=== PATIENT | male | born 1990 ===

== ENCOUNTER 2018-06-17 14:36 | Emergency (ER) | payer MEDICAID, OTHER ==
[2018-06-17] MEDS ORDERED: Sodium Chloride 0.9% 1,000 ML IV STA (16:03)
--- NOTE | 2018-06-17 16:30 | ED PDOC ---
HPI: Abdomen Time Seen by Provider: 06/17/18 15:36 Chief Complaint (Nursing): GI Problem Chief Complaint (Provider): Vomiting History Per: Patient History/Exam Limitations: no limitations Onset/Duration Of Symptoms: Hrs Outside of [place] travel?: No Current Symptoms Are (Timing): Still Present Location Of Pain/Discomfort: Epigastric Associated Symptoms: Vomiting, Diarrhea. denies: Back Pain, Chest Pain, Constipation, Urinary Symptoms Additional History Per: Patient Additional Complaint(s): 28yo male, otherwise well, comes to ER reporting epigastric abdominal pain, 10x episodes of vomiting today as well as 3 episodes of watery diarrhea. He reports attempting to take zofran but has been unable to tolerate PO intake. He also reports generalized weakness, but otherwise denies any fever, chills, chest pain, or shortness of breath. No other complaints. Past Medical History Reviewed: Historical Data, Nursing Documentation, Vital Signs Vital Signs: Last Vital Signs Temp 97.8 F 06/17/18 14:47 Pulse 68 06/17/18 14:47 Resp 18 06/17/18 14:47 BP 112/76 06/17/18 14:47 Pulse Ox 99 06/17/18 14:47 - Medical History PMH: Gastritis - Surgical History Surgical History: No Surg Hx - Family History Family History: States: Unknown Family Hx - Home Medications Home Medications: Ambulatory Orders Medication Instructions Recorded Famotidine [Pepcid] 20 mg PO BID #10 tab 07/23/15 Ondansetron [Zofran] 4 mg PO Q8H PRN #15 tab 07/23/15 Ondansetron ODT [Zofran ODT] 4 mg PO Q8 PRN #12 odt 09/07/15 RX: Clindamycin [Cleocin] 300 mg PO TID #21 cap 12/02/15 Ondansetron ODT [Zofran ODT] 4 mg PO Q8 #6 odt 06/17/18 - Allergies Allergies/Adverse Reactions: Allergies Allergy/AdvReac Type Severity Reaction Status Date / Time Penicillins Allergy RASH Verified 12/01/15 22:37 Review of Systems ROS Statement: Except As Marked, All Systems Reviewed And Found Negative Constitutional: Negative for: Fever, Chills Cardiovascular: Negative for: Chest Pain Respiratory: Negative for: Shortness of Breath Gastrointestinal: Positive for: Vomiting, Abdominal Pain, Diarrhea Physical Exam - Reviewed Nursing Documentation Reviewed: Yes Vital Signs Reviewed: Yes - Physical Exam Appears: Positive for: Non-toxic, No Acute Distress Head Exam: Positive for: ATRAUMATIC, NORMAL INSPECTION, NORMOCEPHALIC Skin: Positive for: Normal Color Eye Exam: Positive for: Normal appearance Neck: Positive for: Normal, Supple Cardiovascular/Chest: Positive for: Regular Rate, Rhythm Respiratory: Positive for: Normal Breath Sounds Gastrointestinal/Abdominal: Positive for: Bowel Sounds, Soft, Tenderness (mild midepigastric tenderness; negative McBurney's point tenderness; negative Greene's sign; no left or right sided abdominal tenderness). Negative for: Mass, Distended, Guarding, Rebound Back: Positive for: Normal Inspection Extremity: Positive for: Normal ROM Neurologic/Psych: Positive for: Alert, Oriented. Negative for: Motor/Sensory Deficits - Laboratory Results Result Diagrams: 06/17/18 16:27 06/17/18 16:27 - ECG O2 Sat by Pulse Oximetry: 99 (RA) Pulse Ox Interpretation: Normal Medical Decision Making Medical Decision Makinyo male with epigastric pain, vomiting and diarrhea; likely viral gastroenteritis Plan: -- IV Fluids -- Zofran 4mg IV -- Pepcid 20mg IV -- Labs 1700 vitals signs normal, physicial exam normal, Patient signed out to Dr. Malcolm pending ER workup, reassessment and disposition. Scribe Attestation: Documented by Lani Mejia acting as a scribe for Zoltan Barlow MD Provider Attestation: All medical record entries made by the Scribe were at my direction and personally dictated by me. I have reviewed the chart and agree that the record accurately reflects my personal performance of the history, physical exam, medical decision making, and the department course for this patient. I have also personally directed, reviewed, and agree with the discharge instructions and disposition. Disposition - Clinical Impression Clinical Impression: Gastroenteritis - Patient ED Disposition Is Patient to be Admitted: Transfer of Care - Disposition Disposition: Transfer of Care Disposition Time: 17:00 Condition: IMPROVED Additional Instructions: Increase water intake for next 24 hours. Start diet with clear broth (soup, gingerale etc) then advanced to soft food (mashed potatoe, toast, banana, apple sauce etc). Follow up with primary medical doctor. Take Zofran as prescribed for nausea/vomiting. Prescriptions: Ondansetron ODT [Zofran ODT] 4 mg PO Q8 #6 odt Instructions: Gastritis (DC), Colitis (DC) Forms: [facility] (Vietnamese) Print Language: ETHIOPIAN Patient Signed Over To: Mildred Malcolm
[2018-06-17 16:46] LABS: BASO % 0.2 % (0.0-2.0); EOS % 0.1 % (0.0-4.0); HEMOGLOBIN 15.6 g/dL (12.0-18.0); LYMPH # 0.3 K/uL (1.0-4.3); LYMPH % 3.1 % (20.0-40.0); MEAN CELL VOLUME 89.1 fl (80.0-94.0); MEAN CORPUSCULAR HEMOGLOBIN 29.5 pg (27.0-31.0); MEAN CORPUSCULAR HGB CONC 33.1 g/dL (33.0-37.0); MEAN PLATELET VOLUME 8.7 fl (7.2-11.7); MONO # 0.5 K/uL (0.0-0.8); MONO % 4.4 % (0.0-10.0); NEUT # 9.7 K/uL (1.8-7.0); NEUT % 92.2 % (50.0-75.0); PLATELET COUNT 208 K/uL (130-400); RBC 5.28 Mil/uL (4.40-5.90); RED CELL DISTRIBUTION WIDTH 13.6 % (11.5-14.5); WHITE BLOOD COUNT 10.5 K/uL (4.8-10.8)
[2018-06-17 16:51] LABS: ALB/GLOB RATIO 1.4 (1.0-2.1); ALBUMIN 4.5 g/dL (3.5-5.0); ALT/SGPT 35 U/L (21-72); AST/SGOT 36 U/L (17-59); BLOOD UREA NITROGEN 18 mg/dl (9-20); CALCIUM 9.4 mg/dL (8.4-10.2); GFR NON-AFRICAN AMERICAN > 60; LIPASE 54 U/L (23-300)
--- NOTE | 2018-06-17 17:16 | ED PDOC ---
- Laboratory Results Result Diagrams: 06/17/18 16:27 06/17/18 16:27 Lab Results: Total Bilirubin 1.0 mg/dl (0.2-1.3) 06/17/18 16:27 AST 36 U/L (17-59) 06/17/18 16:27 ALT 35 U/L (21-72) 06/17/18 16:27 Alkaline Phosphatase 69 U/L (38-126) 06/17/18 16:27 Total Protein 7.8 G/DL (6.3-8.2) 06/17/18 16:27 Albumin 4.5 g/dL (3.5-5.0) 06/17/18 16:27 Globulin 3.2 gm/dL (2.2-3.9) 06/17/18 16:27 Albumin/Globulin Ratio 1.4 (1.0-2.1) 06/17/18 16:27 Lipase 54 U/L (23-300) 06/17/18 16:27 - ECG O2 Sat by Pulse Oximetry: 99 (RA) Pulse Ox Interpretation: Normal Medical Decision Making Medical Decision Making: Time: 1700 -- Patient endorsed to me by Dr. Barlow, pending ER workup, reassessment and disposition. Symptoms improved. Pt tolerating PO. Given Rx for Zofran and return parameters discussed. Pt to follow up with PMD. Scribe Attestation: Documented by Flynn Churchill, acting as a scribe for Mildred Malcolm MD. Provider Scribe Attestation: All medical record entries made by the Scribe were at my direction and personally dictated by me. I have reviewed the chart and agree that the record accurately reflects my personal performance of the history, physical exam, medical decision making, and the department course for this patient. I have also personally directed, reviewed, and agree with the discharge instructions and disposition. Disposition - Clinical Impression Clinical Impression: Gastroenteritis - POA Present On Arrival: None - Disposition Disposition: Routine/Home Disposition Time: 18:40 Condition: IMPROVED Additional Instructions: Increase water intake for next 24 hours. Start diet with clear broth (soup, gingerale etc) then advanced to soft food (mashed potatoe, toast, banana, apple sauce etc). Follow up with primary medical doctor. Take Zofran as prescribed for nausea/vomiting. Prescriptions: Ondansetron ODT [Zofran ODT] 4 mg PO Q8 #6 odt Instructions: Gastritis (DC), Colitis (DC) Forms: [facility] (Samoan) Print Language: NORWEGIAN
[2018-06-17 17:34] LABS: LYMPHOCYTE 2 % (20-50); MONOCYTE 3 % (0-10); NEUTROPHIL 95 % (42-75); PLATELET ESTIMATE NORMAL (NORMAL); TOTAL CELLS COUNTED 100
[2018-06-17 18:41] VITALS: BP 109/60; PULSE 74; RESP 17; TEMP 99.5
[2018-06-19 22:48] VITALS: O2SAT 99
== END 2018-06-17 19:03 | disposition home or self-care (01) ==
LOC: H.ER 14:36
DX: K52.9 Noninfective gastroenteritis and colitis, unspecified (principal); Z88.0 Allergy status to penicillin
CPT/HCPCS: 80053; 83690; 85025; 96361; 96374; 96375; 99283; J2405; J7030